=== PATIENT | male | born 1935 | race Caucasian/White ===

== ENCOUNTER → 2017-01-14 | Outpatient (CLI) | payer OTHER ==
--- NOTE | 2017-01-14 15:26 | PCVCIMAG ---
EXAM: NONINVASIVE ARTERIAL EXAMINATION OF BOTH LOWER EXTREMITIES INCLUDING PRE AND POST EXERCISE PRESSURE MEASUREMENTS AND DOPPLER WAVEFORMS INDICATION: Peripheral Arterial Disease. Leg pain. FINDINGS: Right Brachial: 132 mm Hg. Right Dorsalis Pedis: 130 mm Hg. Right Posterior Tibial: 146 mm Hg. Right NELLI = 1.07. Left Brachial: 136 mm Hg. Left Dorsalis Pedis: 0 mm Hg. Left Posterior Tibial: 93 mm Hg. Left NELLI = 0.68. Post Exercise: Left Brachial 138 mm Hg. Right Posterior Tibial: 114 mm Hg. Left Posterior Tibial: 72 mm Hg. Right NELLI = 0.83. Left NELLI = 0.52. IMPRESSION: No resting ischemia in the right lower extremity. Minimal exercise induced ischemia in the right lower extremity. Mild resting ischemia in the left lower extremity. Moderate exercise induced ischemia in the left lower extremity. LOC:[id number]
--- NOTE | 2017-01-14 15:39 | PCVCIMAG ---
EXAM: BILATERAL LOWER EXTREMITY ARTERIAL DUPLEX INDICATION: Peripheral Arterial Disease. Leg pain. FINDINGS: Right Leg: Satisfactory arterial waveforms in the common femoral and profunda femoral arteries and throughout the superficial femoral artery and popliteal artery. Previous right superficial femoral artery stent is maintaining good patency. High-grade stenosis or occlusion in the mid/distal anterior tibial artery. The peroneal artery and posterior tibial artery are patent. Left Leg: Satisfactory arterial waveforms in the common femoral and profunda femoral artery. Areas of high-grade stenosis/subtotal occlusion involving the mid/distal superficial femoral artery including areas within prior stent distally. The popliteal artery is patent. Occlusion of the mid/distal anterior tibial artery. The peroneal artery and posterior tibial arteries are patent. IMPRESSION: Previous right superficial femoral artery stent is maintaining good patency. Unchanged occlusion of the mid/distal anterior tibial arteries bilaterally. Since January 2016 study areas of high-grade stenosis/subtotal occlusion within the mid/distal left superficial femoral artery has developed. LOC:[id number]
== END | disposition home or self-care (01) ==
LOC: PCVCIMAG 12:56
PROVIDERS: ATTEND Nuclear Medicine Nuclear Cardiology
DX: I74.3 Embolism and thrombosis of arteries of the lower extremities (principal); I70.202 Unspecified atherosclerosis of native arteries of extremities, left leg; I99.8 Other disorder of circulatory system; I25.10 Atherosclerotic heart disease of native coronary artery without angina pectoris; I48.0 Paroxysmal atrial fibrillation; I77.89 Other specified disorders of arteries and arterioles; I10 Essential (primary) hypertension; E78.00 Pure hypercholesterolemia, unspecified; J44.9 Chronic obstructive pulmonary disease, unspecified; R07.9 Chest pain, unspecified; Z72.0 Tobacco use; Z85.828 Personal history of other malignant neoplasm of skin; Z95.828 Presence of other vascular implants and grafts; Z88.2 Allergy status to sulfonamides; Z91.010 Allergy to peanuts; Z88.8 Allergy status to other drugs, medicaments and biological substances; Z79.82 Long term (current) use of aspirin; Z79.899 Other long term (current) drug therapy
CPT/HCPCS: 93005; 93923; 93925; G0463; 93924

== ENCOUNTER → 2017-01-21 | Outpatient (CLI) | payer OTHER ==
[~2017-01-21] MED LIST: CLOPIDOGREL BISULFATE 75 MG TABLET ONE; DIAZEPAM 10 MG TABLET. ONE; EPTIFIBATIDE BOLUS 2,000 MCG/ML 10ML VIAL. IV ONE; HEPARIN SODIUM 5,000 UNIT/ML VIAL for PCVC. ONE; HEPARIN for ARTERIAL LINE 1,500 ML ONE; IODIXANOL 270 MG/ML 100 ML VIAL. ONE; IOHEXOL 350 MG/ML 100 ML VIAL. ONE; IOHEXOL 350 MG/ML 50 ML VIAL. ONE; IV NORMAL SALINE 1000ML BAG 1,000 ML ONE; IV NORMAL SALINE 500ML BAG 500 ML ONE; LIDOCAINE 1% Multi-Dose 20 ML VIAL. ONE; MIDAZOLAM HCL/PF 2 MG/2 ML VIAL. ONE; fentaNYL PF VIAL 100 MCG/2 ML VIAL ONE; hydrALAZINE 20 MG/ML VIAL. ONE
--- NOTE | 2017-01-21 10:45 | PCVCINTER ---
EXAM: 1. AORTOGRAM AND BILATERAL LOWER EXTREMITY RUNOFF ANGIOGRAM 2. BILATERAL RENAL ANGIOGRAPHY 3. LEFT SUPERFICIAL FEMORAL ARTERY ATHERECTOMY AND STENT PLACEMENT. 4. SECONDARY THROMBECTOMY LEFT SUPERFICIAL FEMORAL ARTERY. 5. DRUG COATED BALLOON ANGIOPLASTY LEFT SUPERFICIAL FEMORAL ARTERY. INDICATION: Peripheral arterial disease. Coronary artery disease. Nonhealing ulcer right lower extremity. Hypertension. Renal atherosclerosis. PROCEDURE: Procedure and risks of angiography intervention is appropriate including limb loss stroke and were discussed with the patient's family and consent obtained. The patient's right groin was prepped abnormal sterile fashion. IV conscious sedation was used to procedure with appropriate monitoring for 90 minutes. Ultrasound was used to interrogate the right groin and showed the right common femoral artery to be patent. A permanent spot film was obtained. Under ultrasound guidance access into the right common femoral artery was obtained and a 5 Albanian sheath was placed. Through this a 5 Albanian flush catheter was placed into the abdominal aorta at the level of the renal arteries and AP aortogram was performed. Catheter was positioned at the aortic bifurcation and both oblique views of the pelvis were obtained. Catheter was positioned into the right external iliac artery and right leg runoff angiography was performed. Catheter was exchanged for a visceral catheter was placed into the right renal arteries and right renal angiograms obtained. Catheter was placed into the the left renal arteries and left renal angiograms were obtained. Catheter was advanced to the level of the left external iliac artery and left leg runoff angiography was obtained. Patient was given 4000 units of heparin. A 6 Albanian crossover sheath was placed via the right groin to the level of the left common femoral artery. Atherectomy of the left superficial femoral artery was performed with 2.0 mm [id number] laser atherectomy catheter in the standard fashion. Following atherectomy small areas of thrombus were observed and because of this secondary thrombectomy throughout the left superficial femoral artery was carried out with mechanical suction thrombectomy catheter in the standard fashion. Minimal debris was removed. Following this drug coated balloon angioplasty of the left superficial femoral artery was carried out with a 5 x 120 Medtronic Admiral PRESS TOOL MAKER catheter. Stent placement across the areas of high-grade stenosis in the left superficial femoral artery was carried out with a 6 x 100 Smart control stent with subsequent dilatation to 5.[address] Cortes joined the procedure and he performed coronary artery angiography. Please see his separate dictation for full details. Follow-up angiogram was performed. Catheters and wires removed. Sheath was removed and hemostasis obtained using the Exoseal device. No immediate complications. FINDINGS: Aortogram: There is one right and one left renal artery. Moderate plaque infrarenal abdominal aorta without significant stenosis or aneurysm. Previous stent in the infrarenal abdominal aorta maintaining good patency. Pelvis: The common and external iliac arteries show good patency including the bilateral iliac artery stents. Both internal iliac arteries are patent. Right renal artery: Mild plaque proximal vessel without significant stenosis. No branch vessel stenosis. Left renal artery: Mild plaque proximal vessel without significant stenosis. No branch vessel stenosis. Right leg: The common femoral and profunda femoral arteries show good patency. Scattered plaque throughout the superficial femoral artery does not cause significant stenosis. Previous superficial femoral artery stent maintaining satisfactory patency. Moderate plaque popliteal artery without significant stenosis. Occlusion of the mid/distal anterior tibial artery. Mild stenosis proximal posterior tibial artery. Peroneal artery and posterior tibial arteries otherwise show satisfactory patency with the posterior tibial artery being the dominant runoff vessel into the foot. Left leg: Common femoral and profunda femoral arteries are patent. 95% focal stenosis mid/upper superficial femoral artery causes slow flow throughout the superficial femoral artery. Previous stent in the mid/distal superficial femoral artery maintaining good patency. Moderate plaque popliteal artery without flow-limiting stenosis. Multiple high-grade stenoses throughout the anterior tibial artery which is diminutive in size. The peroneal and posterior tibial arteries show good patency to provide runoff into the foot. Left superficial femoral artery: Following procedure as above vessel shows good patency without significant residual stenosis. IMPRESSION: 95% focal stenosis mid/upper [place] left superficial femoral artery was treated as above with good patency restored. Previous mid/distal left superficial femoral artery stents maintaining good patency. Previous right superficial femoral artery and bilateral iliac artery stents maintaining good patency. follow up LOC:[id number]
== END ==
LOC: PCVCINTER 07:26
PROVIDERS: ATTEND Nuclear Medicine Nuclear Cardiology
DX: I70.263 Atherosclerosis of native arteries of extremities with gangrene, bilateral legs (principal); I25.10 Atherosclerotic heart disease of native coronary artery without angina pectoris; I10 Essential (primary) hypertension; I70.1 Atherosclerosis of renal artery
CPT/HCPCS: 36252; 37186; 37227; 75716; 76937; 93458; 99152; 99153; C1725; C1751; C1757; C1769; C1876; C1885; C1894; C2623; J0360; J0690; J1327; J1644; J2250; J3010; J7030; J7040; Q9967

== ENCOUNTER → 2017-05-17 | Outpatient (CLI) | payer OTHER ==
--- NOTE | 2017-05-17 13:48 | PCVCIMAG ---
APPROVED REPORT Laterality: Bilateral Patient Location: Out-Patient Indications Bruit Stenosis Surgery/Intervention right left Doppler Spectral Velocity Analysis PSV / EDVPSV / EDV ICA/CCA ICA/CCA Findings The right carotid bulb has mild plaque. The right proximal internal carotid artery shows no significant stenosis; widely patent stent. The right common carotid artery shows no significant stenosis. The right external carotid artery shows <50% stenosis. The left carotid bulb has mild plaque. The left proximal internal carotid artery shows no significant stenosis; widely patent stent. The left common carotid artery shows no significant stenosis. The left external carotid artery shows >50% stenosis. Conclusion 1. Mild plaquing. Widely patent bilateral common and internal carotid artery stents 2. Antegrade vertebral flow
--- NOTE | 2017-05-17 14:41 | PCVCIMAG ---
EXAM: LEFT LOWER EXTREMITY ARTERIAL DUPLEX INDICATION: Peripheral Arterial Disease. Leg pain. FINDINGS: Left Leg: Satisfactory arterial waveforms throughout the common/profunda/superficial femoral, popliteal, peroneal, and posterior tibial arteries without flow limiting stenosis seen. Occlusion of the mid/distal anterior tibial artery. IMPRESSION: Previous left superficial femoral artery stent maintaining satisfactory patency. No left superficial femoral or popliteal artery stenoses. Occlusion mid/distal left anterior tibial artery. LOC:[id number]
== END | disposition home or self-care (01) ==
LOC: PCVCIMAG 12:03
PROVIDERS: ATTEND Nuclear Medicine Nuclear Cardiology
DX: I25.10 Atherosclerotic heart disease of native coronary artery without angina pectoris (principal); I73.9 Peripheral vascular disease, unspecified; I77.9 Disorder of arteries and arterioles, unspecified; I10 Essential (primary) hypertension; I48.0 Paroxysmal atrial fibrillation; E78.00 Pure hypercholesterolemia, unspecified; C34.10 Malignant neoplasm of upper lobe, unspecified bronchus or lung; I65.23 Occlusion and stenosis of bilateral carotid arteries; R94.31 Abnormal electrocardiogram [ECG] [EKG]; R09.89 Other specified symptoms and signs involving the circulatory and respiratory systems; M79.605 Pain in left leg; Z87.891 Personal history of nicotine dependence; Z79.899 Other long term (current) drug therapy
CPT/HCPCS: 93005; 93880; 93926; G0463

== ENCOUNTER → 2018-09-05 | Outpatient (CLI) | payer OTHER | END | disposition home or self-care (01) | LOC: PCVCCLINIC 14:11 | PROVIDERS: ATTEND Internal Medicine Cardiovascular Disease | DX: I25.10 Atherosclerotic heart disease of native coronary artery without angina pectoris (principal); I48.0 Paroxysmal atrial fibrillation; I73.9 Peripheral vascular disease, unspecified; I10 Essential (primary) hypertension; J43.9 Emphysema, unspecified; F17.210 Nicotine dependence, cigarettes, uncomplicated; Z79.899 Other long term (current) drug therapy | CPT/HCPCS: 36415; 80061; 93005; G0463 ==

== ENCOUNTER → 2018-09-05 | Outpatient (CLI) | payer OTHER ==
--- NOTE | 2018-09-05 16:31 | PCVCIMAG ---
EXAM: BILATERAL LOWER EXTREMITY ARTERIAL DUPLEX INDICATION: Peripheral Arterial Disease. Leg pain. FINDINGS: Right Leg: Common femoral and profunda femoral arteries are patent. Superficial femoral artery and popliteal artery are patent. Previous stent mid/distal superficial femoral artery maintaining good patency. Occlusion of the mid/distal anterior tibial artery is unchanged. Peroneal artery and posterior tibial artery are patent. Left Leg: Common femoral and profunda femoral arteries are patent. Occlusion throughout the superficial femoral artery within prior stent. Refilling of the distal superficial femoral artery. Popliteal artery is patent. Mid/distal anterior tibial artery is occluded. The peroneal artery and posterior tibial artery are patent. IMPRESSION: Unchanged occlusion mid/distal right anterior tibial artery. Otherwise no flow limiting stenosis in the right lower extremity. Previous right superficial femoral artery stent maintaining satisfactory patency. Interval occlusion of the left superficial femoral artery within prior stent. Unchanged occlusion mid/distal left anterior tibial artery. LOC:[id number]
== END | disposition home or self-care (01) ==
LOC: PCVCIMAG 14:54
PROVIDERS: ATTEND Internal Medicine Cardiovascular Disease
DX: I73.9 Peripheral vascular disease, unspecified (principal); E78.00 Pure hypercholesterolemia, unspecified; Z72.0 Tobacco use
CPT/HCPCS: 93925

== ENCOUNTER → 2018-12-26 | Outpatient (CLI) | payer OTHER ==
--- NOTE | 2018-12-26 08:54 | PCVCIMAG ---
EXAM: BILATERAL CAROTID DUPLEX INDICATION: Carotid Occlusive Disease. FINDINGS: Doppler Measurements (centimeters per second): RIGHT: Peak CCA-79, Peak ECA-153, Diastolic ICA-13, Peak ICA-109, ICA/CCA Ratio-1.4 LEFT: Peak CCA-85, Peak ECA-128, Diastolic ICA-27, Peak ICA-95, ICA/CCA Ratio-1.1 RIGHT CAROTID: Good color flow throughout a prior stent in the upper common carotid and extending into the proximal internal carotid artery. The proximal internal carotid artery shows no significant stenosis. The common carotid artery shows no significant stenosis. The external carotid artery shows 40% stenosis. LEFT CAROTID: Good color flow throughout a prior stent in the upper common carotid and extending into the proximal internal carotid artery. The proximal internal carotid artery shows no significant stenosis. The common carotid artery shows no significant stenosis. The external carotid artery shows no significant stenosis. Antegrade flow in both vertebral arteries. IMPRESSION: Prior right carotid stent showing good patency. Prior left carotid stent showing good patency. LOC:[id number]
--- NOTE | 2018-12-26 08:59 | PCVCIMAG ---
EXAM: LEFT LOWER EXTREMITY ARTERIAL DUPLEX INDICATION: Peripheral Arterial Disease. Leg pain. FINDINGS: Left Leg: Common femoral and profunda femoral arteries are patent. Superficial femoral artery and popliteal artery patent. Previous stent graft superficial femoral artery remains patent. The peroneal and posterior tibial arteries are patent. Unchanged occlusion mid anterior tibial artery. IMPRESSION: Unchanged occlusion mid left anterior tibial artery. Otherwise no flow limiting stenosis in the left lower extremity. Previous left superficial femoral artery stent graft maintaining satisfactory patency. LOC:[id number]
== END | disposition home or self-care (01) ==
LOC: PCVCIMAG 08:04
PROVIDERS: ATTEND Nuclear Medicine Nuclear Cardiology
DX: I65.21 Occlusion and stenosis of right carotid artery (principal); I73.9 Peripheral vascular disease, unspecified
CPT/HCPCS: 93880; 93926